=== PATIENT | male | born 1960 | race Two or more races ===

== ENCOUNTER 2022-01-01 16:33 | Outpatient (CLI) | payer OTHER | END 2022-01-01 16:42 | disposition home or self-care (01) | LOC: LAB 16:33 | PROVIDERS: ATTEND Urology | DX: R97.20 Elevated prostate specific antigen [PSA] (principal) ==

== ENCOUNTER 2022-01-29 08:44 | Outpatient (CLI) | payer OTHER | END 2022-01-29 08:51 | disposition home or self-care (01) | LOC: SONOGRAMA 08:44 | PROVIDERS: ATTEND Urology | DX: C61 Malignant neoplasm of prostate (principal); D29.1 Benign neoplasm of prostate; R97.20 Elevated prostate specific antigen [PSA] ==